=== PATIENT | male | born 1955 | race Caucasian/White ===

== ENCOUNTER 2020-02-21 16:56 | Emergency (ER) | payer OTHER ==
[~2020-02-21] VITALS: Ht 182.9 cm; Wt 110.4 kg
--- NOTE | 2020-02-21 17:09 | PHYS DOC ---
General Adult HPI: HPI: History obtained from patient and EMS. Patient is a 64-year-old male with a history of end-stage renal dialysis who presents with a chief complaint of right anterior chest wall tunnel catheter dislodgment. Per EMS there called the patient's apartment for bleeding. They state upon arrival the patient had profuse bleeding from his right anterior chest wall. They state they applied direct pressure and brought him immediately to the emergency department. Patient states he is had multiple failed grafts that he uses for dialysis. He does receive treatments on Mondays, Wednesdays, and Fridays. He did receive full treatment 2 days ago. He states that his vascular surgeons are at [facility]. States he does not take any daily blood thinners but does receive heparin injections for his dialysis. 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 He estimates that the right anterior chest wall tunnel catheter was placed approximately 6 months ago. Notes some mild lightheadedness. Denies shortness of breath. Denies syncope. He states that he recently drove 100 miles to visit family and returned home this afternoon. He states he was too tired to make it into his apartment and fell asleep in his truck. He states when he woke up he began walking to the apartment and noted bleeding from his right anterior chest wall. He has no idea how the catheter became dislodged. Denies trauma or injury. No other complaints. No other complaints. (MICHELLE MARCH DO) Review of Systems: Review of Systems: Constitutional: Denies fever or chills Eyes: Denies change in visual acuity HENT: Denies nasal congestion or sore throat Respiratory: Denies cough or shortness of breath Cardiovascular: Positive for lightheadedness GI: Denies abdominal pain, nausea, vomiting, bloody stools or diarrhea : Denies dysuria Musculoskeletal: Denies back pain or joint pain Integument: Denies rash Neurologic: Denies headache, focal weakness or sensory changes Endocrine: Denies polyuria or polydipsia Lymphatic: Denies swollen glands Psychiatric: Denies depression or anxiety (MICHELLE MARCH DO) Heart Score: Risk Factors: Risk Factors: DM, Current or recent (<one month) smoker, HTN, HLP, family history of CAD, obesity. Risk Scores: Score 0 - 3: 2.5% MACE over next 6 weeks - Discharge Home Score 4 - 6: 20.3% MACE over next 6 weeks - Admit for Clinical Observation Score 7 - 10: 72.7% MACE over next 6 weeks - Early Invasive Strategies (MICHELLE MARCH DO) Physical Exam: PE: Constitutional: Well developed, well nourished, no acute distress, non-toxic appearance. [] HENT: Normocephalic, atraumatic, bilateral external ears normal, oropharynx moist, no oral exudates, nose normal. [] Eyes: PERRLA, EOMI, conjunctiva normal, no discharge. [] Neck: Normal range of motion, no tenderness, supple, no stridor. [] Cardiovascular:Heart rate regular rhythm, no murmur [] Lungs & Thorax: Bilateral breath sounds clear to auscultation. Right anterior chest wall tunneled catheter insertion site without catheter. No active bleeding appreciated. [] Abdomen: soft, no tenderness, no masses, no pulsatile masses. [] Skin: Warm, dry, no erythema, no rash. [] Back: No tenderness, no CVA tenderness. [] Extremities: No tenderness, no cyanosis, no clubbing, ROM intact, no edema. [] Neurologic: Alert and oriented X 3, normal motor function, normal sensory function, no focal deficits noted. GCS 15 [] Psychologic: Affect normal, judgement normal, mood normal. [] (MICHELLE MARCH DO) Current Patient Data: Labs: Laboratory Tests Test 02/21/20 17:05 White Blood Count 9.0 x10^3/uL Red Blood Count 3.46 x10^6/uL Hemoglobin 10.9 g/dL Hematocrit 32.9 % Mean Corpuscular Volume 95 fL Mean Corpuscular Hemoglobin 31 pg Mean Corpuscular Hemoglobin Concent 33 g/dL Red Cell Distribution Width 14.4 % Platelet Count 182 x10^3/uL Neutrophils (%) (Auto) 56 % Lymphocytes (%) (Auto) 33 % Monocytes (%) (Auto) 6 % Eosinophils (%) (Auto) 5 % Basophils (%) (Auto) 1 % Neutrophils # (Auto) 5.0 x10^3uL Lymphocytes # (Auto) 2.9 x10^3/uL Monocytes # (Auto) 0.5 x10^3/uL Eosinophils # (Auto) 0.4 x10^3/uL Basophils # (Auto) 0.1 x10^3/uL Sodium Level 140 mmol/L Potassium Level 5.3 mmol/L Chloride Level 105 mmol/L Carbon Dioxide Level 25 mmol/L Anion Gap 10 Blood Urea Nitrogen 44 mg/dL Creatinine 7.7 mg/dL Estimated GFR (Cockcroft-Gault) 7.2 Glucose Level 125 mg/dL Calcium Level 7.8 mg/dL Vital Signs: Vital Signs Date Time Temp Pulse Resp B/P (MAP) Pulse Ox O2 Delivery O2 Flow Rate FiO2 02/21/20 17:24 97.9 74 24 181/109 (133) 98 (MICHELLE MARCH DO) EKG: EKG: [] (MICHELLE MARCH DO) Radiology/Procedures: Radiology/Procedures: [place] [address] IMAGING REPORT Signed PATIENT: MARIA DEL CARMEN ARAMBULA ACCOUNT: [id number] : 1955 LOCATION: ER AGE: 64 SEX: M EXAM STATUS: PRE ER ORD. PHYSICIAN: MICHELLE MARCH DO REASON: right chest wall tunneled catheter R chest wall PROCEDURE: CHEST AP ONLY EXAM: CHEST AP ONLY 02/21/2020 5:05 PM CLINICAL INDICATION: Right chest wall tunneled catheter COMPARISON: None TECHNIQUE: AP upright view of the chest FINDINGS: There is a left subclavian pacemaker/AICD. Changes of median sternotomy are noted. Moderate cardiomegaly. Lungs are well-expanded and clear. No pleural effusion or pneumothorax. No acute osseous abnormality. IMPRESSION: Moderate cardiomegaly. Electronically signed by: Jacy Rubio MD (02/21/2020 5:15 PM) [id number] DICTATED AND SIGNED BY: JACY RUBIO MD DATE: 02/21/20 1715 CC: MICHELLE MARCH DO ~ [] (MICHELLE MARCH DO) Course & Med Decision Making: Course & Med Decision Making Pertinent Labs and Imaging studies reviewed. (See chart for details) [] Patient is a 64-year-old male who arrives via EMS for dislodged tunneled hemodialysis catheter from his right anterior chest wall. Upon arrival bleeding had subsided. His initial vital signs were normal including normal blood pressure without tachycardia. GCS 15. No signs of hemorrhagic shock. Labs are pending at this time. Chest x-ray reveals no tunnel catheter. Given patient's vascular consultants are at [facility] we did contact their facility immediately. Patient has been accepted by Dr. Alex Brandon to their hospital. At the time he is awaiting transport. His vital signs remained stable at time of signout. I have signed out the patient's emergency department care to Dr. Lozano. We discussed the history, physical exam findings, completed and pending laboratory results and imaging studies. We have also discussed the current treatment plan and expected clinical course. Please refer to chart for the patient's remaining emergency department course, final disposition, and clinical impression(s). (MICHELLE MARCH DO) Course & Med Decision Making See. Dr. March Chart for details. (BEN SCHAFFER MD) Dragon Disclaimer: Dragon Disclaimer: This electronic medical record was generated, in whole or in part, using a voice recognition dictation system. (MICHELLE MARCH DO) Departure Departure: Impression: Primary Impression: ESRD (end stage renal disease) Additional Impression: Dialysis complication Qualified Codes: T82.9XXA - Unspecified complication of cardiac and vascular prosthetic device, implant and graft, initial encounter Disposition: 02 XFER SHT-TRM HOSP Condition: STABLE MICHELLE MARCH DO Feb 21, 2020 17:09 BEN SCHAFFER MD Feb 26, 2020 07:05
--- NOTE | 2020-02-21 17:18 | RAD ---
EXAM: CHEST AP ONLY 02/21/2020 5:05 PM CLINICAL INDICATION: Right chest wall tunneled catheter COMPARISON: None TECHNIQUE: AP upright view of the chest FINDINGS: There is a left subclavian pacemaker/AICD. Changes of median sternotomy are noted. Moderate cardiomegaly. Lungs are well-expanded and clear. No pleural effusion or pneumothorax. No acute osseous abnormality. IMPRESSION: Moderate cardiomegaly. Electronically signed by: Jacy Rubio MD (02/21/2020 5:15 PM) [id number]
[2020-02-21 17:22] LABS: BASO # 0.1 x10^3/uL (0.0-0.2); BASO % 1 % (0-3); EOS # 0.4 x10^3/uL (0.0-0.7); EOS % 5 % (0-3); HEMATOCRIT 32.9 % (39.0-53.0); HEMOGLOBIN 10.9 g/dL (13.0-17.5); LYMPH # 2.9 x10^3/uL (1.0-4.8); LYMPH % 33 % (24-48); MEAN CORPUSCULAR HEMOGLOBIN 31 pg (25-35); MEAN CORPUSCULAR HGB CONC 33 g/dL (31-37); MEAN CORPUSCULAR VOLUME 95 fL (79-100); MONO # 0.5 x10^3/uL (0.0-1.1); MONO % 6 % (0-9); NEUT % 56 % (31-73); PLATELET COUNT 182 x10^3/uL (140-400); RED BLOOD COUNT 3.46 x10^6/uL (4.30-5.70); RED CELL DISTRIBUTION WIDTH 14.4 % (11.5-14.5)
[2020-02-21 17:24] VITALS: BP 181/109
[2020-02-21 17:30] LABS: CALCIUM 7.8 mg/dL (8.5-10.1); CREATININE 7.7 mg/dL (0.7-1.3); GFR 7.2; POTASSIUM 5.3 mmol/L (3.5-5.1)
== END 2020-02-21 18:17 | disposition short-term general hospital (02) ==
LOC: ER 16:56
DX: T82.838A Hemorrhage due to vascular prosthetic devices, implants and grafts, initial encounter (principal); R42 Dizziness and giddiness; N18.6 End stage renal disease; Z99.2 Dependence on renal dialysis
CPT/HCPCS: 36415; 71045; 80048; 85025; 85610; 85730; 86850; 86900; 86901; 99284; 99285